=== PATIENT | male | born 1985 | race Two or more races ===

== ENCOUNTER 2019-12-14 22:51 | Inpatient (IN) | payer OTHER ==
[~2019-12-14] VITALS: Ht 162.6 cm; Wt 60.9 kg
[2019-12-14 23:17] LABS: BASOPHILS % (AUTO) 1.2 % (0.0-2.0); EOSINOPHILS % (AUTO) 5.9 % (1.0-6.0); HEMATOCRIT 39.9 % (41-53); HEMOGLOBIN 13.5 g/dL (13.5-17.5); LYMPHOCYTES # (AUTO) 1.7 K/uL (1.0-4.8); MEAN CORPUSCULAR HEMOGLOBIN 32.3 pg (26.0-34.0); MEAN CORPUSCULAR HGB CONC 33.9 G/dL (31.0-37.0); MEAN CORPUSCULAR VOLUME 96 fL (80-100); MONOCYTES # (AUTO) 0.6 K/uL (0.1-1.0); MONOCYTES % (AUTO) 7.4 % (2.0-9.0); NEUTROPHILS # (AUTO) 4.9 K/uL (1.8-7.7); NEUTROPHILS % (AUTO) 63.5 % (40.0-70.0); PLATELET COUNT (AUTO) 313 K/uL (150-450); RED BLOOD CELL COUNT(AUTO) 4.18 MIL/uL (4.50-5.90); RED CELL DISTRIBUTION WIDTH 13.4 % (11.5-14.5)
[2019-12-14 23:29] LABS: ANION GAP 6 mmol/L (8-16); CALCIUM, TOTAL 9.1 mg/dL (8.8-10.5); CARBON DIOXIDE 29 mmol/L (22-29); CHLORIDE 106 mmol/L (98-107); CREATININE 0.86 mg/dL (0.60-1.30); GLOMERULAR FILTR. RATE CALC > 60 mL/min (>60); GLUCOSE,RANDOM 91 mg/dL (70-110); POTASSIUM 4.2 mmol/L (3.5-5.1); SODIUM SERUM 141 mmol/L (136-145); UREA NITROGEN, BLOOD 13 mg/dL (7-18)
[2019-12-14 23:34] LABS: ALANINE AMINOTRANSFERASE 97 U/L (12-78); ALBUMIN 3.9 g/dL (3.4-5.0); ALKALINE PHOSPHATASE 102 U/L (46-116); ASPARTATE AMINOTRANSFERASE 47 U/L (15-37); BILIRUBIN,TOTAL 0.3 mg/dL (0.1-1.0); TOTAL PROTEIN, SERUM 7.2 g/dL (6.4-8.2)
[2019-12-14 23:47] LABS: COVID AG,FIA SOURCE NASOPHARYNGEAL
[2019-12-15 00:06] LABS: AMPHET/METH SCREEN,URINE NEGATIVE (NEGATIVE); BARBITURATE SCREEN, URINE NEGATIVE (NEGATIVE); BENZODIAZEPINES SCREEN,URINE NEGATIVE (NEGATIVE); CANNABINOID SCREEN,URINE NEGATIVE (NEGATIVE); COCAINE SCREEN,URINE NEGATIVE (NEGATIVE); METHADONE SCREEN, URINE NEGATIVE (NEGATIVE); OPIATE SCREEN,URINE NEGATIVE (NEGATIVE)
[2019-12-15 00:29] LABS: PHENCYCLIDINE SCREEN,URINE NEGATIVE (NEGATIVE)
[2019-12-15 01:10] VITALS: BP 102/64
[2019-12-15] MEDS ORDERED: INFLUENZA VIRUS VACCINE QVS 2020-21 (6MO+)/PF 60 MCG/0.5 ML SYRINGE IM ONE (03:15)
[2019-12-15 05:15] VITALS: BP 103/64
[2019-12-15] MEDS ORDERED: MAGNESIUM HYDROXIDE SUSPENSION 30 ML UDCUP PO PRN (07:15)
[2019-12-15 07:47] VITALS: BP 107/63
[2019-12-15] MEDS: ACETAMINOPHEN 325 MG TABLET PO PRN ×2 (08:18→19:57)
[2019-12-15 12:45] VITALS: BP 109/62
[2019-12-15] MEDS: FLUoxetine HCL 10 MG CAPSULE PO SCH (12:59)
[2019-12-15 16:35] VITALS: BP 105/64
[2019-12-15 19:38] VITALS: BP 119/70
[2019-12-16 02:56] VITALS: BP 103/62
[2019-12-16 07:15] VITALS: BP 113/86
[2019-12-16] MEDS: FLUoxetine HCL 10 MG CAPSULE PO SCH (08:01)
[2019-12-16 19:00] VITALS: BP 114/61
[2019-12-16] MEDS: ACETAMINOPHEN 325 MG TABLET PO PRN (19:41)
[2019-12-17 07:55] VITALS: BP 97/63
[2019-12-17] MEDS: FLUoxetine HCL 10 MG CAPSULE PO SCH (08:01)
[2019-12-17] MEDS ORDERED: PROZ10 PO (09:35)
[2019-12-17] MEDS ORDERED: ACET-2865 PO (10:09)
[2019-12-17] MEDS ORDERED: MOM30 PO (10:10)
[2019-12-17 15:47] VITALS: BP 112/75
== END 2019-12-17 17:00 | DRG 880 ==
LOC: EMS 22:51 → 6N 12-15 00:50 → 6S 12-16 12:00
PROVIDERS: ADMIT Internal Medicine; ATTEND Internal Medicine
DX: R45.851 Suicidal ideations (principal); F17.210 Nicotine dependence, cigarettes, uncomplicated; F41.9 Anxiety disorder, unspecified; Z03.818 Encounter for observation for suspected exposure to other biological agents ruled out
CPT/HCPCS: 87426; G0480